=== PATIENT | male | born 1965 | race Caucasian/White ===

== ENCOUNTER 2019-01-07 23:22 | Emergency (ER) | payer OTHER ==
[~2019-01-07] VITALS: Ht 185.4 cm; Wt 74.8 kg
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
[2019-01-07] MEDS ORDERED: ONDANSETRON 4 MG TAB.RAPDIS ONE (23:38)
[2019-01-07] MEDS ORDERED: HYDROMORPHONE INJ 2 MG/ML DISP.SYRIN ONE (23:38)
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
--- NOTE | 2019-01-07 23:54 | NUR ---
PT BACK FROM CT
[2019-01-08] MEDS ORDERED: ONDANSETRON 4 MG TAB.RAPDIS SL ONE
[2019-01-08] MEDS ORDERED: HYDROMORPHONE INJ 2 MG/ML DISP.SYRIN IM ONE
[2019-01-08 00:01] VITALS: BP 155/89
--- NOTE | 2019-01-08 00:10 | NUR ---
XRAY AT BEDSIDE
[2019-01-08] MEDS ORDERED: PENICILLIN G BENZATHINE 2.4 MMU/4 ML ML IM ONE ×2 (00:27→00:30)
--- NOTE | 2019-01-08 01:10 | NUR ---
DCPatient discharged to home in stable condition. Written and verbal after care instructions given. Patient verbalizes understanding of instruction. IM inj site no noted ASE. no noted ASE from atb administration. Pt ambulatory with a steady gait
== END 2019-01-08 01:10 | disposition home or self-care (01) ==
LOC: ER 23:25
DX: S02.642B Fracture of ramus of left mandible, initial encounter for open fracture (principal); S02.69XB Fracture of mandible of other specified site, initial encounter for open fracture; E05.90 Thyrotoxicosis, unspecified without thyrotoxic crisis or storm; Z98.890 Other specified postprocedural states; Y04.0XXA Assault by unarmed brawl or fight, initial encounter; Y93.89 Activity, other specified; Y92.89 Other specified places as the place of occurrence of the external cause; Y99.0 Civilian activity done for income or pay
CPT/HCPCS: 70486; 71045; 74018; 96372 ×2; 99284; J0558; J1170; Q0162